=== PATIENT | male | born 1995 | race Caucasian/White ===

== ENCOUNTER 2017-06-10 12:47 | Emergency (ER) | payer OTHER ==
[~2017-06-10] VITALS: Ht 170.2 cm; Wt 101.2 kg
[2017-06-10 16:04] VITALS: BP 128/60
== END 2017-06-10 16:04 | disposition home or self-care (01) ==
LOC: ED 12:47
DX: M25.561 Pain in right knee (principal)

== ENCOUNTER 2017-08-15 09:49 | Emergency (ER) | payer OTHER ==
[2017-08-15 10:07] VITALS: BP 142/74
== END 2017-08-15 12:08 | disposition home or self-care (01) ==
LOC: ED 09:49
DX: S86.911A Strain of unspecified muscle(s) and tendon(s) at lower leg level, right leg, initial encounter (principal); R03.0 Elevated blood-pressure reading, without diagnosis of hypertension; X50.9XXA Other and unspecified overexertion or strenuous movements or postures, initial encounter; Y93.89 Activity, other specified; Y99.8 Other external cause status; Y92.89 Other specified places as the place of occurrence of the external cause

== ENCOUNTER 2017-09-24 18:04 | Emergency (ER) | payer OTHER ==
[~2017-09-24] VITALS: Ht 172.7 cm; Wt 105.3 kg
[2017-09-24 18:22] VITALS: Ht 172.7 cm; Wt 105.3 kg
[2017-09-24 23:12] VITALS: BP 118/66
== END 2017-09-24 23:12 | disposition home or self-care (01) ==
LOC: ED 18:04
DX: R51 Headache (principal)
CPT/HCPCS: J1100; J2765; J7030

== ENCOUNTER 2019-05-07 21:59 | Emergency (ER) | payer OTHER ==
[~2019-05-07] VITALS: Ht 172.7 cm; Wt 92.1 kg
[2019-05-07 22:15] VITALS: Ht 172.7 cm; Wt 92.1 kg
[2019-05-07 23:30] VITALS: BP 130/70
== END 2019-05-07 23:30 | disposition home or self-care (01) ==
LOC: ED 21:59
DX: S09.90XA Unspecified injury of head, initial encounter (principal); W22.8XXA Striking against or struck by other objects, initial encounter; Y93.89 Activity, other specified; Y92.89 Other specified places as the place of occurrence of the external cause; Y99.8 Other external cause status